=== PATIENT | female | born 1950 ===

== ENCOUNTER 2017-07-30 03:21 | Outpatient (CLI) | payer MEDICARE | END 2017-07-30 23:59 | disposition home or self-care (01) | LOC: DIABETIC 03:21 | PROVIDERS: ATTEND Registered Nurse General Practice | DX: E11.9 Type 2 diabetes mellitus without complications (principal) | CPT/HCPCS: G0108 ==

== ENCOUNTER 2017-10-29 03:40 | Outpatient (CLI) | payer MEDICARE | END 2017-10-29 23:59 | disposition home or self-care (01) | LOC: DIABETIC 03:40 | PROVIDERS: ATTEND Registered Nurse General Practice | DX: E11.9 Type 2 diabetes mellitus without complications (principal) | CPT/HCPCS: G0108 ==

== ENCOUNTER 2018-02-03 02:27 | Outpatient (CLI) | payer MEDICARE | END 2018-02-03 23:59 | disposition home or self-care (01) | LOC: DIABETIC 02:27 | DX: E11.9 Type 2 diabetes mellitus without complications (principal); Z88.2 Allergy status to sulfonamides; Z88.8 Allergy status to other drugs, medicaments and biological substances; Z79.899 Other long term (current) drug therapy | CPT/HCPCS: G0108 ==

== ENCOUNTER 2018-06-04 01:42 | Outpatient (CLI) | payer MEDICARE | END 2018-06-04 23:59 | disposition home or self-care (01) | LOC: DIABETIC 01:42 | PROVIDERS: ATTEND Registered Nurse General Practice | DX: E11.9 Type 2 diabetes mellitus without complications (principal); Z79.84 Long term (current) use of oral hypoglycemic drugs; Z88.2 Allergy status to sulfonamides; Z91.048 Other nonmedicinal substance allergy status | CPT/HCPCS: G0108 ==

== ENCOUNTER 2018-10-16 04:33 | Outpatient (CLI) | payer MEDICARE | END 2018-10-16 23:59 | disposition home or self-care (01) | LOC: DIABETIC 04:33 | PROVIDERS: ATTEND Registered Nurse General Practice | DX: E11.9 Type 2 diabetes mellitus without complications (principal); Z79.84 Long term (current) use of oral hypoglycemic drugs; Z88.8 Allergy status to other drugs, medicaments and biological substances | CPT/HCPCS: G0108 ==

== ENCOUNTER 2019-02-16 02:38 | Outpatient (CLI) | payer MEDICARE | END 2019-02-16 23:59 | disposition home or self-care (01) | LOC: DIABETIC 02:38 | PROVIDERS: ATTEND Registered Nurse General Practice | DX: E11.9 Type 2 diabetes mellitus without complications (principal); Z79.84 Long term (current) use of oral hypoglycemic drugs | CPT/HCPCS: G0108 ==

== ENCOUNTER 2019-05-26 01:44 | Outpatient (CLI) | payer MEDICARE | END 2019-05-26 23:59 | disposition home or self-care (01) | LOC: DIABETIC 01:44 | PROVIDERS: ATTEND Registered Nurse General Practice | DX: E11.9 Type 2 diabetes mellitus without complications (principal); Z79.84 Long term (current) use of oral hypoglycemic drugs; Z79.899 Other long term (current) drug therapy; Z88.2 Allergy status to sulfonamides; Z91.018 Allergy to other foods | CPT/HCPCS: G0108 ==